=== PATIENT | male | born 1980 | race Two or more races ===

== ENCOUNTER 2016-12-15 06:40 | Emergency (ER) | payer MEDICAID ==
[~2016-12-15] VITALS: Ht 177.8 cm; Wt 72.6 kg
--- NOTE | 2016-12-15 06:50 | NUR ---
TO BED 6 A 36 YO MALE BIBA#86 PT STATES HE DID METH 20 HOURS AGO AND IS NOW HAVING TINGLING IN HIS HANDS AND CALFS, PT ALSO C/O SOB. PATIENT WAS DX WITH PNA 1 MONTH AGO AND IS TAKING LEVAQUIN AND AMOXICILLIN, WITH HX OF AIDS. BREATHING EVEN AND UNLABORED. SATTING AT 97% ON ROOM AIR. NO S/S OF ACUTE DISTRESS. GOWNED. INITIATED COMFORT AND SAFETY MEASURES. AWAITING FOR ER MD NORRIS.
[2016-12-15] MEDS ORDERED: LORAZEPAM INJ 2 MG/ML VIAL ONE (06:59)
[2016-12-15] MEDS ORDERED: LORAZEPAM INJ 2 MG/ML VIAL IV ONE (07:00)
[2016-12-15] MEDS ORDERED: IV NS 0.9% 1,000 ML IV ONE (07:00)
[2016-12-15] MEDS ORDERED: IV NS 0.9% 1,000 ML ONE (07:01)
[2016-12-15] MEDS ORDERED: IV SET PRIMARY PUMP SET 1 EA INFUS.SET MC ONE (07:01)
--- NOTE | 2016-12-15 07:11 | NUR ---
Medicated patient per Dr Villagomez's orders.
[2016-12-15 07:13] LABS: BASOPHILS % (AUTO) 0.5 % (0.0-2.0); EOSINOPHILS % (AUTO) 0.7 % (0.0-6.0); HEMATOCRIT 40 % (39-51); HEMOGLOBIN 13.6 g/dL (13.5-17.5); LYMPHOCYTES # (AUTO) 1.7 /CMM (0.8-4.8); LYMPHOCYTES % (AUTO) 24.8 % (20.0-44.0); MEAN CORPUSCULAR HEMOGLOBIN 33 PG (26.0-33.0); MEAN CORPUSCULAR HGB CONC 34 g/dl (31.0-36.0); MEAN CORPUSCULAR VOLUME 96 fL (80-96); MONOCYTES # (AUTO) 0.9 /CMM (0.1-1.30); MONOCYTES % (AUTO) 13.3 % (2.0-12.0); NEUTROPHILS # (AUTO) 4.1 /CMM (1.8-8.9); NEUTROPHILS % (AUTO) 60.7 % (43.0-81.0); PLATELET COUNT (AUTO) 291 /CMM (150-450); RDW COEFFICIENT OF VARIATION 14.1 (11.5-15.0); RED BLOOD CELL COUNT(AUTO) 4.11 MIL/uL (4.5-6.0); WHITE BLOOD COUNT (AUTO) 6.8 K/uL (4.3-11.0)
[2016-12-15 07:23] LABS: CALCIUM, SERUM 9.5 mg/dL (8.5-10.1); CREATININE 1.3 mg/dL (0.6-1.3); POTASSIUM 3.4 mmol/L (3.5-5.1)
[2016-12-15 07:29] LABS: ALBUMIN 3.9 g/dL (3.4-5.0); BILIRUBIN,TOTAL 0.5 mg/dL (0.2-1.0); TOTAL PROTEIN, SERUM 8.5 g/dL (6.4-8.2)
--- NOTE | 2016-12-15 08:06 | NUR ---
Patient discharged to home in stable condition. Written and verbal after care instructions given. Patient verbalizes understanding of instruction.
[2016-12-15 08:07] VITALS: BP 107/65
== END 2016-12-15 08:08 | disposition home or self-care (01) ==
LOC: ER 06:42
DX: E86.0 Dehydration (principal); F41.9 Anxiety disorder, unspecified; F19.10 Other psychoactive substance abuse, uncomplicated; F17.200 Nicotine dependence, unspecified, uncomplicated
CPT/HCPCS: 36415; 80053-TC; 82550-TC; 85025-TC; A4606; J2060; J7030; Z7610

== ENCOUNTER 2016-12-18 06:01 | Emergency (ER) | payer MEDICAID ==
[~2016-12-18] VITALS: Ht 172.7 cm; Wt 81.6 kg
--- NOTE | 2016-12-18 06:19 | NUR ---
PT BIB RA WITH A C/O PAINFUL URINATION. PT WAS TAKEN FROM THE GURNEY TO THE BATHROOM VIA WC. PT AMBULATED INTO THE BATHROOM WITH A STEADY GAIT. URINE SAMPLE OBTAINED. PT THEN AMBULATED TO BED #3. PT IS CHANGING HIS CLOTHES ARE WET. NOT SURE WHY HE HAS WET CLOTHES.
--- NOTE | 2016-12-18 06:31 | NUR ---
JOHNIE ZUNIGA STUDENT, IS AT THE BEDSIDE EVALUATING THE PT.
[2016-12-18 06:38] LABS: APPEARANCE,URINE CLOUDY (CLEAR); BILIRUBIN,URINE NEGATIVE (NEGATIVE); BLOOD, URINE NEGATIVE Ery/uL (NEGATIVE); COLOR,URINE YELLOW (YELLOW); KETONES,URINE TRACE (NEGATIVE); LEUKOCYTE ESTERASE ,URINE 3+ (NEGATIVE); NITRITE, URINE NEGATIVE (NEGATIVE); PROTEIN,URINE NEGATIVE (NEGATIVE); UGLUCOSE NEGATIVE (NEGATIVE); UROBILINOGEN,URINE 0.2 EU/dL (0.2)
[2016-12-18 06:45] LABS: BACTERIA,URINE Rare /HPF (None Seen); RBC,URINE 0-2 /HPF (0-2); SQUAMOUS EPITHELIAL CELL,UR 0-2 /HPF (None Seen); WBC,URINE 21-50 /HPF (0-3)
--- NOTE | 2016-12-18 06:48 | NUR ---
PT WANTED A BIBLE TO READ. CALLED [facility] IN [place] TO SEE IF THEY COULD BRING THE PT A BIBLE. NO ANSWER.
--- NOTE | 2016-12-18 06:50 | NUR ---
JOHNIE ZUNIGA STUDENT IS AT THE BEDSIDE SPEAKING TO THE PT.
[2016-12-18 06:55] VITALS: BP 111/72
[2016-12-18] MEDS ORDERED: IBUPROFEN 600 MG TABLET PO ONE (07:00)
--- NOTE | 2016-12-18 07:06 | NUR ---
Patient discharged to home in stable condition. Written and verbal after care instructions given. Patient verbalizes understanding of instruction AND RX. PT REFUSED TO LEAVE AND STARTED YELLING. SECURITY ESCORTED PT OUT OF THE ER. VSS.
--- NOTE | 2016-12-18 07:08 | NUR ---
PT WAS ESCORTED OUT BY SECURITY AND AMBULATED OUT WITH A STEADY GAIT.
== END 2016-12-18 07:15 | disposition home or self-care (01) ==
LOC: ER 06:03
DX: N39.0 Urinary tract infection, site not specified (principal); F41.9 Anxiety disorder, unspecified; F17.200 Nicotine dependence, unspecified, uncomplicated
CPT/HCPCS: 81001; 87086; 99284; A4606; Z7610; 81000-TC